=== PATIENT | female | born 1945 | race Caucasian/White ===

== ENCOUNTER 2017-07-01 13:13 | Outpatient (CLI) | payer MEDICARE, OTHER | END 2017-07-01 13:14 | disposition home or self-care (01) | LOC: BICMAMMO 13:13 | PROVIDERS: ATTEND Obstetrics & Gynecology | DX: Z12.31 Encounter for screening mammogram for malignant neoplasm of breast (principal) | CPT/HCPCS: 77063; 77067 ==

== ENCOUNTER 2018-07-02 12:48 | Outpatient (CLI) | payer MEDICARE, OTHER ==
--- NOTE | 2018-07-02 13:45 | MMO ---
Bilateral MAMMO Bilat Screen [facility]. CLINICAL HISTORY: Patient is 73 years old and is seen for screening. The patient has no family history of breast cancer. The patient has a history of other cancer. The patient has a history of right needle biopsy - benign. VIEWS: The views performed were: bilateral craniocaudal with tomosynthesis and bilateral mediolateral oblique with tomosynthesis. FILMS COMPARED: The present examination has been compared to prior imaging studies performed at [facility] on 05/16/2014, 05/18/2015, 05/27/2016 and 07/01/2017, and at [facility] on 03/03/2008, 03/19/2009, 03/26/2010 and 03/14/2013. MAMMOGRAM FINDINGS: The breasts are heterogeneously dense, which could obscure a lesion on mammography. Finding 1: There is a stable biopsy clip seen in the right breast. Finding 2: There are vascular calcifications seen in both breasts. There are no suspicious masses, suspicious calcifications, or new areas of architectural distortion. IMPRESSION: THERE IS NO MAMMOGRAPHIC EVIDENCE OF MALIGNANCY. A ROUTINE FOLLOW-UP MAMMOGRAM IN 1 YEAR IS RECOMMENDED. THE RESULTS OF THIS EXAM WERE SENT TO THE PATIENT. ACR BI-RADS Category 2 - Benign finding MAMMOGRAPHY NOTE: 1. A negative mammogram report should not delay a biopsy if a dominant of clinically suspicious mass is present. 2. Approximately 10% to 15% of breast cancers are not detected by mammography. 3. Adenosis and dense breasts may obscure an underlying neoplasm.
== END 2018-07-02 12:49 | disposition home or self-care (01) ==
LOC: BICMAMMO 12:48
PROVIDERS: ATTEND Internal Medicine
DX: Z12.31 Encounter for screening mammogram for malignant neoplasm of breast (principal); Z85.89 Personal history of malignant neoplasm of other organs and systems
CPT/HCPCS: 77063; 77067

== ENCOUNTER 2018-12-26 08:13 | Emergency (ER) | payer MEDICARE, OTHER ==
[2018-12-26] MEDS ORDERED: Ketorolac Tromethamine 30 MG/ML VIAL ONE (08:44)
== END 2018-12-26 09:23 | disposition home or self-care (01) ==
LOC: ERS 08:13
DX: M72.2 Plantar fascial fibromatosis (principal); F41.9 Anxiety disorder, unspecified
CPT/HCPCS: 96372; 99283; J1885

== ENCOUNTER 2019-07-18 16:09 | Outpatient (CLI) | payer MEDICARE, OTHER ==
--- NOTE | 2019-07-19 09:48 | MMO ---
Bilateral MAMMO Bilat Screen [facility]. CLINICAL HISTORY: Patient is 74 years old and is seen for screening. The patient has no family history of breast cancer. The patient has a history of other cancer. The patient has a history of right needle biopsy - benign. VIEWS: The views performed were: bilateral craniocaudal with tomosynthesis and bilateral mediolateral oblique with tomosynthesis. FILMS COMPARED: The present examination has been compared to prior imaging studies performed at [facility] on 05/18/2015, 05/27/2016, 07/01/2017 and 07/02/2018. This study has been interpreted with the assistance of computer-aided detection. MAMMOGRAM FINDINGS: The breasts are heterogeneously dense, which could obscure a lesion on mammography. Finding 1: Benign calcifications are noted bilaterally. Finding 2: There is a stable biopsy clip seen in the right breast. There are no suspicious masses, suspicious calcifications, or new areas of architectural distortion. IMPRESSION: THERE IS NO MAMMOGRAPHIC EVIDENCE OF MALIGNANCY. A ROUTINE FOLLOW-UP MAMMOGRAM IN 1 YEAR IS RECOMMENDED. THE RESULTS OF THIS EXAM WERE SENT TO THE PATIENT. ACR BI-RADS Category 2 - Benign finding MAMMOGRAPHY NOTE: 1. A negative mammogram report should not delay a biopsy if a dominant of clinically suspicious mass is present. 2. Approximately 10% to 15% of breast cancers are not detected by mammography. 3. Adenosis and dense breasts may obscure an underlying neoplasm. Reported by: ALONZO SHAH MD Electonically Signed: [id number]
== END 2019-07-18 16:10 | disposition home or self-care (01) ==
LOC: BICMAMMO 16:09
PROVIDERS: ATTEND Obstetrics & Gynecology
DX: Z12.31 Encounter for screening mammogram for malignant neoplasm of breast (principal); Z85.89 Personal history of malignant neoplasm of other organs and systems; Z91.89 Other specified personal risk factors, not elsewhere classified
CPT/HCPCS: 77063; 77067

== ENCOUNTER 2020-02-09 11:32 | Outpatient (CLI) | payer MEDICARE ==
[2020-02-10 04:26] LABS: SARS-CoV-2 MS2 Positive; SARS-CoV-2 N Gene Negative; SARS-CoV-2 S Gene Negative; SARS-CoV-2 by NAA Not Detected (NotDetected); SARS-CoV-2 orf1ab Negative
== END 2020-02-09 11:33 | disposition home or self-care (01) ==
LOC: LABBT 11:32
PROVIDERS: ATTEND Ophthalmology Retina Specialist
DX: Z01.812 Encounter for preprocedural laboratory examination (principal); Z20.828 Contact with and (suspected) exposure to other viral communicable diseases
CPT/HCPCS: 87635; U0003

== ENCOUNTER 2020-02-14 06:29 | Day surgery (SDC) | payer MEDICARE ==
[2020-02-13 10:47] VITALS: BMI 26.6
[~2020-02-14 06:29] MED LIST: EPINEPHrine 0.3 MG in Ophthalmic Irrigation Solution 500 ML IRR SCH
[2020-02-14] MEDS ORDERED: Cyclopentolate 1% Opth Drop 2 ML BOT ONE (06:44)
[2020-02-14] MEDS ORDERED: Phenylephrine 2.5% Ophth Soln 5 ML BOT ONE (06:44)
[2020-02-14] MEDS ORDERED: PROPOFOL 20 ML ONE (06:48)
[2020-02-14] MEDS ORDERED: Fentanyl 100 MCG/2 ML VIAL ONE (06:48)
[2020-02-14] MEDS ORDERED: Midazolam HCl 2 mg/2 ml Vial ONE (06:48)
--- NOTE | 2020-02-14 08:45 | OP ---
DATE OF PROCEDURE: 02/14/2020 PRINCIPAL PREOPERATIVE DIAGNOSIS: Macular hole, right eye. POSTOPERATIVE DIAGNOSIS: Macular hole, right eye. PROCEDURES PERFORMED: 1. A 25-gauge pars plana vitrectomy, right eye. 2. Macular hole repair, right eye with internal limiting membrane peeling. ESTIMATED BLOOD LOSS: None. SPECIMENS REMOVED: None. COMPLICATIONS: None. ANESTHESIA: MAC with sub-Tenon's block. DESCRIPTION OF PROCEDURE: The patient was identified in the preoperative holding area, where the correct eye being the right eye was marked for surgery. The patient was taken to the operating room, where MAC anesthesia was induced. The right eye was prepped and draped in usual sterile ophthalmic fashion for surgery. A wire-clip lid speculum was placed. An inferonasal conjunctival peritomy was fashioned with Martín scissors for administration of sub-Tenon's block. The block consisted of 1:1 ratio of 4% lidocaine and 0.75% Marcaine. A total of 5 mL was administered. A standard 25-gauge pars plana vitrectomy platform was fashioned with trocars placed approximately 3.5 mm from the limbus. The infusion was noted to be within the vitreous cavity prior to being turned on to infusion pressure of 30 mmHg. The light pipe and microvitrector were introduced in the eye under visualization of the BIOM viewing system. A careful core vitrectomy was performed followed by injection of Kenalog. A gentle posterior vitreous detachment was subsequently created followed by completion of peripheral shave vitrectomy. Following vitrectomy, ICG dye was used to stain the internal limiting membrane. The Ulises ILM forceps were used to peel the internal limiting membrane in a circumferential fashion about the fovea. The peel extended approximately 2 disk diameters in radius circumferentially. Following peeling, the microvitrector was reintroduced in the eye to remove the residual vitreous debris. An air-fluid exchange was performed followed by air-gas exchange with 15% SF6. Cannula was sequentially removed. All sclerotomies were noted to be gas tight. Subconjunctival Kenalog was injected. The wire-clip lid speculum was removed followed by application of TobraDex ophthalmic ointment and a light patch and shield. The patient tolerated the procedure well, was taken to outpatient recovery area in good condition. Job ID: [id number]
[2020-02-14] MEDS ORDERED: Bupivacaine PF 0.75% SDV 10 ML ONE (09:16)
[2020-02-14] MEDS ORDERED: Maxitrol 0.1% Opth Oint 3.5 GM TUBE ONE (09:16)
[2020-02-14] MEDS ORDERED: Indocyanine Green 25 MG/10 ML VIAL ONE (09:16)
[2020-02-14] MEDS ORDERED: Triamcinolone 40 MG/ML VIAL ONE (09:16)
[2020-02-14] MEDS ORDERED: PROPOFOL 200 MG/20 ML VIAL ONE (09:16)
[2020-02-14] MEDS ORDERED: Lidocaine 4% PF 5 ML AMP ONE (09:16)
== END 2020-02-14 09:00 | disposition home or self-care (01) ==
LOC: SDC 06:29
PROVIDERS: ATTEND Ophthalmology Retina Specialist
PROC: 08T43ZZ Resection of Right Vitreous, Percutaneous Approach (ICD-10-PCS; principal; 2020-02-14)
PROC: 08NE3ZZ Release Right Retina, Percutaneous Approach (ICD-10-PCS; 2020-02-14)
DX: H35.341 Macular cyst, hole, or pseudohole, right eye (principal); Z88.0 Allergy status to penicillin; Z88.2 Allergy status to sulfonamides
CPT/HCPCS: 67025; J0171; J2001; J2250; J2704; J3010; J3301; J3490

== ENCOUNTER 2020-07-18 09:14 | Outpatient (CLI) | payer MEDICARE | END 2020-07-18 09:15 | disposition home or self-care (01) | LOC: BICMAMMO 09:14 | PROVIDERS: ATTEND Obstetrics & Gynecology | DX: Z12.31 Encounter for screening mammogram for malignant neoplasm of breast (principal); Z85.89 Personal history of malignant neoplasm of other organs and systems; Z91.89 Other specified personal risk factors, not elsewhere classified | CPT/HCPCS: 77063; 77067 ==